=== PATIENT | female | born 1970 | race Caucasian/White ===

== ENCOUNTER 2017-06-11 09:11 | Emergency (ER) | payer OTHER ==
[~2017-06-11] VITALS: Ht 152.4 cm; Wt 47.4 kg
[~2017-06-11 09:11] MED LIST: AMOXICILLIN500 M1 PO; LEXAPRO10 MG PO; MOTRIN400 MG PO; PREDNISONE5 MG PO
[2017-06-11] MEDS ORDERED: PEN-VEE K,VEET500 MG PO (10:44)
[2017-06-11] MEDS ORDERED: NAPROXEN500 MG PO (10:44)
[2017-06-11 10:54] VITALS: BP 105/83
== END 2017-06-11 10:54 | disposition home or self-care (01) ==
LOC: EME 09:11
PROC: 0C96XZZ Drainage of Lower Gingiva, External Approach (ICD-10-PCS; principal; 2017-06-11)
DX: K04.7 Periapical abscess without sinus (principal); K02.9 Dental caries, unspecified; K08.89 Other specified disorders of teeth and supporting structures; Z87.891 Personal history of nicotine dependence
CPT/HCPCS: 99281; 99283

== ENCOUNTER 2017-11-05 08:58 | Emergency (ER) | payer OTHER ==
[~2017-11-05] VITALS: Ht 152.4 cm; Wt 50.3 kg
[~2017-11-05 08:58] MED LIST changes: +NAPROXEN500 MG PO; +PEN-VEE K,VEET500 MG PO
[2017-11-05] MEDS ORDERED: NORCO 5/3251 TABLET PO (09:47)
[2017-11-05] MEDS ORDERED: PEN-VEE K,VEET500 MG PO (09:47)
[2017-11-05 09:55] VITALS: BP 124/76
== END 2017-11-05 09:56 | disposition home or self-care (01) ==
LOC: EME 08:58
DX: K08.89 Other specified disorders of teeth and supporting structures (principal); K04.7 Periapical abscess without sinus; F17.200 Nicotine dependence, unspecified, uncomplicated; Z79.52 Long term (current) use of systemic steroids
CPT/HCPCS: 99281; 99284

== ENCOUNTER 2018-01-13 17:19 | Emergency (ER) | payer OTHER ==
[~2018-01-13] VITALS: Ht 149.9 cm; Wt 48.3 kg
[~2018-01-13 17:19] MED LIST changes: +NORCO 5/3251 TABLET PO
[2018-01-13 20:47] VITALS: BP 149/81
== END 2018-01-13 20:48 | disposition home or self-care (01) ==
LOC: EME 17:19
DX: F32.9 Major depressive disorder, single episode, unspecified (principal); F11.90 Opioid use, unspecified, uncomplicated; F17.200 Nicotine dependence, unspecified, uncomplicated
CPT/HCPCS: 90837; 99281; 99283